=== PATIENT | female | born 1965 | race Hispanic/Latino ===

== ENCOUNTER 2017-12-24 16:37 | Outpatient (CLI) | payer BC ==
--- NOTE | 2017-12-25 08:28 | Magnetic Resonance Report ---
MR LOWER EXTREMITY JOINT LEFT WITHOUT CONTRAST HISTORY: Left knee pain. TECHNIQUE: Axial: proton density fat sat. Sagittal: proton density, T2 fat sat, T2 gradient. Coronal: T1, proton-density fat-sat. COMPARISON: None. FINDINGS: Osseous structures: Normal. Cartilage: There is mild to moderate cartilage thinning along the lateral facet of the patella. Mild cartilage thinning in the medial and lateral compartments. No full thickness defect is identified. Menisci: A horizontal cleavage tear is suspected in the posterior horn of the medial meniscus. There is a focal area of irregularity along the inner margin of the lateral meniscus in the posterior horn region consistent with a parrot-beak tear. Ligaments: The ACL, PCL, MCL, LCL complex and extensor complex are intact and unremarkable. Joint effusion: There is a moderate simple appearing joint effusion extending to the suprapatellar bursa. Soft tissues: Normal. IMPRESSION: Both menisci are abnormal. A moderate sized horizontal cleavage tear is suspected in the posterior horn of the medial meniscus. A small parrot-beak tear is suspected along the inner margin of the lateral meniscus as described. Mild cartilage thinning as described. Moderate joint effusion.
== END 2017-12-24 16:38 | disposition home or self-care (01) ==
LOC: MRI 16:37
PROVIDERS: ATTEND Orthopaedic Surgery
DX: M25.462 Effusion, left knee (principal)
CPT/HCPCS: 73721

== ENCOUNTER 2018-02-12 11:40 | Day surgery (SDC) | payer BC ==
[~2018-02-12 11:40] MED LIST: VANCOMYCIN PHARMACY TO DOSE IV SCH; VANCOMYCIN/NS 1 GM/250 ML 1 GM/250 ML BAG IV SCH
[2018-02-12] MEDS ORDERED: NACL BACTERIOSTATIC INFILTRATI ONE (13:48)
[2018-02-12] MEDS ORDERED: NACL 0.9% 1000 ML 1,000 ML IV SCH (14:00)
[2018-02-12] MEDS ORDERED: VERSED IV NR (14:00)
[2018-02-12] MEDS ORDERED: SUBLIMAZE ONE (15:25)
[2018-02-12] MEDS ORDERED: DIPRIVAN 10 MG/ML IV ONE (15:25)
[2018-02-12] MEDS ORDERED: ZOFRAN ONE (15:25)
[2018-02-12] MEDS ORDERED: XYLOCAINE MPF 2% ONE (15:25)
[2018-02-12] MEDS ORDERED: REGLAN ONE (15:25)
[2018-02-12] MEDS ORDERED: MARCAINE-EPI 0.25%-1:200,000 INFILTRATI ONE ×2 (15:27→16:38)
--- NOTE | 2018-02-12 15:32 | Anesthesia Consultation ---
Anesthesia Consult and Med Hx Date of service: 02/12/18 - Airway Anesthetic Teeth Evaluation: Good ROM Head & Neck: Adequate Mental/Hyoid Distance: Adequate Mallampati Class: Class II Intubation Access Assessment: Probably Good - Pulmonary Exam CTA: Yes - Cardiac Exam Cardiac Exam: RRR - Pre-Operative Health Status ASA Pre-Surgery Classification: ASA2 Proposed Anesthetic Plan: General (GA with LMA) - Pulmonary Hx Smoking: No Hx Sleep Apnea: No (CARL[facility] ALBERTO PRE SCREEN LOW RISK) - Cardiovascular System Hx Hypertension: No - Central Nervous System Hx Back Pain: Yes (RT SCIATIC NERVE PAIN) - Other Systems Hx Cancer: No
--- NOTE | 2018-02-12 15:32 | Anesthesia Day of Surgery ---
Anesthesia Day of Surgery - Day of Surgery Patient Examined: Yes Patient H&P Reviewed: Yes Patient is NPO: Yes
[2018-02-12] MEDS ORDERED: ZOFRAN IV PRN (15:33)
[2018-02-12] MEDS ORDERED: DILAUDID IV PRN (15:33)
[2018-02-12] MEDS ORDERED: DEMEROL IV PRN (15:33)
[2018-02-12] MEDS ORDERED: LACTATED RINGERS 1,000 ML IV SCH (16:00)
[2018-02-12] MEDS ORDERED: NACL 0.9% 1000 ML 1,000 ML ONE (16:37)
[2018-02-12] MEDS ORDERED: NACL 0.9% IR ONE (16:38)
[2018-02-12 18:52] VITALS: BP 115/73
--- NOTE | 2018-02-12 19:32 | Operative Report ---
PREOPERATIVE DIAGNOSIS: Left knee with degenerative joint disease, meniscal tear. POSTOPERATIVE DIAGNOSES: 1. Left knee with tear posterior horn medial meniscus, peripheral undersurface tear. 2. Tear central body and anterior horn of the lateral meniscus as well as posterior horn degenerative tear. 3. Grade 3 chondromalacia of patella. 4. Synovitis. PROCEDURE PERFORMED: 1. Left knee arthroscopy with partial medial and lateral meniscectomy. 2. Chondroplasty patella. 3. Extensive synovectomy. SURGEON: Fortino Yadav M.D. HANDS ASSEMBLER: Addison Fairbanks CSA. ANESTHESIA: General. ESTIMATED BLOOD LOSS: Minimal. COMPLICATIONS: None. DESCRIPTION OF PROCEDURE: The patient underwent successful induction of anesthesia. Following this, the lower extremity was exsanguinated and the tourniquet inflated. She was carefully positioned in the leg corral, prepped and draped in usual sterile fashion. Antibiotics were preadministered. Arthroscopy was performed utilizing standard medial and lateral portals. Systematic exam of the joint was carried out, which demonstrated the findings noted. The extensive tricompartmental synovitis noted. This was debrided. The patella demonstrated grade 3 chondromalacia, gentle chondroplasty done effectively using a Lori surface ____. Trochlea was relatively well preserved. Medial and lateral compartment, articular surface demonstrated relatively well preserved surface with the exception of grade 2-3 chondromalacia of the lateral tibial plateau. The medial meniscus demonstrated a small 1 cm undersurface tear posteriorly. This was gently debrided with a full-radius resector. The upper surface was well preserved. This was stable tear, not requiring any further treatment. The medial meniscus appeared to be well-preserved. The lateral meniscus demonstrated a central significant fraying with small radial tear in the junction of the posterior horn and body. There was fraying in the posterior horn as well insertionally and a longitudinal tear in the anterior horn. These were debrided with a full radius resector and a Lori surface. Stable rim was achieved allowing preservation of release of peripheral 75-80% of meniscus. As noted, the articular surface was well preserved. Thorough examination and irrigation of the remainder of joint was carried out with both portals. Intraoperative photographs were obtained for documentation. Joints were copiously irrigated with 0.25% Marcaine. Ports were closed with nylon sutures. Steri-Strips applied. She was taken to the recovery room in satisfactory condition having tolerated the procedure well. [facility]# [id number] FRANCESCAP/NTS
== END 2018-02-12 11:41 | disposition home or self-care (01) ==
LOC: OR 11:40
PROVIDERS: ATTEND Orthopaedic Surgery
DX: S83.242A Other tear of medial meniscus, current injury, left knee, initial encounter (principal); S83.282A Other tear of lateral meniscus, current injury, left knee, initial encounter; M17.12 Unilateral primary osteoarthritis, left knee; M65.862 Other synovitis and tenosynovitis, left lower leg; M22.42 Chondromalacia patellae, left knee; K21.9 Gastro-esophageal reflux disease without esophagitis; F32.9 Major depressive disorder, single episode, unspecified; Z90.710 Acquired absence of both cervix and uterus; X58.XXXA Exposure to other specified factors, initial encounter; Y93.89 Activity, other specified; Y92.89 Other specified places as the place of occurrence of the external cause
CPT/HCPCS: 29880; A4217; J1170; J2250; J2405; J2704; J2765; J3010; J3370; J7030

== ENCOUNTER 2019-02-17 06:56 | Outpatient (CLI) | payer BC ==
--- NOTE | 2019-02-17 08:18 | Mammography Report ---
BILATERAL DIGITAL SCREENING MAMMOGRAMS WITH CAD INDICATION: Screening. COMPARISONS: 05/26/2015 FINDINGS: Craniocaudal and mediolateral oblique views of both breasts were obtained using 2-D digital acquisition. In addition to standard review, the examination was analyzed for possible abnormalities using a computer-assisted detection device (iCAD). The breasts are almost entirely fatty. A right asymmetry on the CC view requires additional imaging. No architectural distortion or suspicio us calcifications. The left breast is negative. IMPRESSION: Right asymmetry requiring additional imaging. Recommend recall for true lateral and spot magnificatio n CC views and right breast ultrasound if needed. BI-RADS CATEGORY 0: INCOMPLETE - NEED ADDITIONAL IMAGING EVALUATION AND/OR PRIOR MAMMOGRAMS FOR COMP ARISON Information is entered into a reminder system for a target due date for the next mammogram. The resul ts and recommendations were sent to the patient by mail. Signer Name: Abdi Gray MD Signed: 02/17/2019 8:13 AM Workstation Name: [id number]
== END 2019-02-17 06:57 | disposition home or self-care (01) ==
LOC: MAMMO 06:56
PROVIDERS: ATTEND Obstetrics & Gynecology
DX: Z12.31 Encounter for screening mammogram for malignant neoplasm of breast (principal); K21.9 Gastro-esophageal reflux disease without esophagitis; Z90.710 Acquired absence of both cervix and uterus
CPT/HCPCS: 77067

== ENCOUNTER 2019-03-27 08:05 | Outpatient (CLI) | payer BC ==
--- NOTE | 2019-03-27 08:53 | Mammography Report ---
DIGITAL DIAGNOSTIC MAMMOGRAM WITH CAD, -- 03/27/2019 INDICATION: Screening recall of the right breast. Abnormal screening mammogram TECHNIQUE: Digital right mammographic imaging was performed. Spot compression views were obtained. This examination was interpreted with the benefit of Computer-aided Detection analysis. COMPARISON: 02/17/2019, 05/26/2015 FINDINGS: Breast Density: The breasts are almost entirely fatty. Spot compression views of the right breast demonstrate near total resolution of the asymmetry in the lateral breast posterior depth. This does not appear significantly changed when compared to the previ ous study back to 2014 and most likely represented superimposed fibroglandular tissue. IMPRESSION: Follow up recommendation: Mammogram 6 months. BI-RADS Category 3: Probably Benign. Followup in 6 months. Recommend follow-up right mammogram in 6 months to confirm this impression. A "normal" or negative report should not discourage follow up or biopsy of a clinically significant f inding. A written summary of these findings will be mailed to the patient. The patient will be entered into a mammography reporting system which will generate a reminder letter for the patient's next appointmen t at the appropriate interval. According to the [employer], yearly mammograms are recommended starting at age 40 and continuing as long as a woman is in good health. Breast MRI is recommended for women with an rylee roximately 20-25% or greater lifetime risk of breast cancer, including women with a strong family his tory of breast or ovarian cancer and women who have been treated for Hodgkin's disease. Signer Name: Jeanne Haywood MD Signed: 03/27/2019 8:49 AM Workstation Name: [id number]
== END 2019-03-27 08:06 | disposition home or self-care (01) ==
LOC: MAMMO 08:05
PROVIDERS: ATTEND Obstetrics & Gynecology
DX: R92.8 Other abnormal and inconclusive findings on diagnostic imaging of breast (principal); K21.9 Gastro-esophageal reflux disease without esophagitis; Z90.710 Acquired absence of both cervix and uterus

== ENCOUNTER 2021-12-19 08:24 | Outpatient (CLI) | payer BC ==
--- NOTE | 2021-12-20 15:51 | Mammography Report ---
DIGITAL SCREENING MAMMOGRAM WITH CAD, 12/19/2021 CLINICAL INFORMATION / INDICATION: Routine screening mammography. SCREENING MAMMO Z12.31 TECHNIQUE: Digital bilateral 2D mammography was obtained in the craniocaudal and mediolateral obliqu e projections. This examination was interpreted with the benefit of Computer-Aided Detection analysis . COMPARISON: 02/17/2019 and 05/26/2015 FINDINGS: Breast Density: There are scattered areas of fibroglandular density. No dominant mass, suspicious calcifications, or architectural distortion in either breast. Biopsy change again noted in the right breast. IMPRESSION: No mammographic evidence of malignancy. Follow up recommendation: Routine yearly screening mammogram. BI-RADS Category 2: BENIGN. A "normal" or negative report should not discourage follow up or biopsy of a clinically significant f inding. A written summary of these findings will be mailed to the patient. The patient will be entered into a mammography reporting system which will generate a reminder letter for the patient's next appointmen t at the appropriate interval. The [employer] recommends yearly mammograms starting at age 40 and continuing as l casimiro as a woman is in good health. Breast MRI is recommended for women with an approximate 20-25% or greater lifetime risk of breast cancer, including women with a strong family history of breast or ova poly cancer or who have been treated for Hodgkin's disease. Signer Name: Colten Hanley MD Signed: 12/20/2021 3:47 PM Workstation Name: [id number]
== END 2021-12-19 08:25 | disposition home or self-care (01) ==
LOC: SPVWC 08:24 → EEVIPCON 08:24 → SPVWC 08:25
DX: Z12.31 Encounter for screening mammogram for malignant neoplasm of breast (principal)
CPT/HCPCS: 77067